=== PATIENT | female | born 1930 | race Caucasian/White ===

== ENCOUNTER 2018-10-03 07:41 | Day surgery (SDC) | payer OTHER ==
[2018-10-01 13:38] VITALS: BMI 27.1
[2018-10-03 08:23] LABS: BASO % 0.3 % (0-2.0); EOS % 1.7 % (0-4.5); HEMOGLOBIN 11.8 GM/dL (10.7-15.3); LYMPH % 17.7 % (8-40); MCH 30.7 pg (25.7-33.7); MCHC 32.8 g/dl (32.0-36.0); MEAN CELL VOLUME 93.7 fl (80-96); MEAN PLT VOLUME 7.9 fl (7.5-11.1); MONO % 11.6 % (3.8-10.2); NEUT % 68.7 % (42.8-82.8); PLATELET COUNT 378 K/MM3 (134-434); RBC 3.85 M/mm3 (3.60-5.2); RDW 14.6 % (11.6-15.6); WHITE BLOOD COUNT 11.1 K/mm3 (4.0-10.0)
[2018-10-03 08:25] LABS: INR 1.18 (0.83-1.09)
[2018-10-03 16:18] VITALS: BP 112/68; PULSE 112; TEMP 97.8
--- NOTE | 2018-10-08 16:16 | PATH ---
Cytology Non-Gynecological Report Patient Name: JOAQUÍN OATES [facility]. Rec. #: [id number] /Age/Gender: 1930 (Age: 88) / F Account: [id number] Location: RADIOLOGY INTER Taken: 10/03/2018 Received: 10/04/2018 Reported: 10/08/2018 Physicians: Park Wise M.D. 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 NEGATIVE FOR MALIGNANT CELLS. CYSTIC LESION. MACROPHAGES, RARE MESOTHELIAL CELLS, FEW LYMPHOCYTES, AND DEGENERATED CELLS IN A CLEAN BACKGROUND. Comment: Findings show a cystic lesion with a broad differential diagnosis which include: mesothelial cyst, bronchogenic cyst, and esophageal duplication cyst. Suggest clinical and radiologic correlation. Prior material is noted. Electronically Signed Yaritza Reeves M.D. Gross Description Approximately 50 cc of yellow fluid received fixed in 50% alcohol.
== END 2018-10-03 15:45 ==
LOC: JRADIR 07:41
PROVIDERS: ATTEND Internal Medicine
PROC: 0WBC3ZX Excision of Mediastinum, Percutaneous Approach, Diagnostic (ICD-10-PCS; principal; 2018-10-03)
DX: D49.89 Neoplasm of unspecified behavior of other specified sites (principal)
CPT/HCPCS: 32405; 36415; 71045-TC-FY; 77012-TC; 85025; 85610; 87070; 87075; 87102; 87116; 87205; 87206; 87210; 87899; 88108